=== PATIENT | female | born 1980 | race Caucasian/White ===

== ENCOUNTER 2021-04-23 14:09 | Emergency (ER) | payer OTHER ==
[~2021-04-23] VITALS: Ht 160 cm; Wt 72.6 kg
[2021-04-23 14:25] VITALS: BP 138/90
--- NOTE | 2021-04-23 14:25 | NUR ---
LOWER BACK PAIN SINCE YESTERDAY. TAKING MOTRIN/NAPROSYN W/ NO RELIEF. PLACED PATIENT COMFORTABLY IN BED. PATIENT AOX4. LMP 04/15/21 VITALS CHECKED
[2021-04-23] MEDS ORDERED: HYDROCODONE/APAP 5/325MG TABLET PO ONE (15:00)
[2021-04-23] MEDS ORDERED: METHOCARBAMOL (500MG) 500 MG TABLET PO ONE (15:00)
[2021-04-23] MEDS ORDERED: KETOROLAC TROMETHAMINE INJ 30 MG/ML VIAL IM ONE (15:00)
--- NOTE | 2021-04-23 15:31 | NUR ---
URINE SPECIMEN SENT TO LAB.
[2021-04-23] MEDS ORDERED: KETOROLAC TROMETHAMINE INJ 30 MG/ML VIAL ONE (15:34)
[2021-04-23] MEDS ORDERED: HYDROCODONE/APAP 5/325MG TABLET ONE (15:35)
[2021-04-23] MEDS ORDERED: METHOCARBAMOL (500MG) 500 MG TABLET ONE (15:36)
[2021-04-23] MEDS ORDERED: IBUP-1957 PO (16:13)
[2021-04-23] MEDS ORDERED: METH-647 PO (16:13)
[2021-04-23] MEDS ORDERED: HYDR-3972 PO (16:13)
--- NOTE | 2021-04-23 16:23 | NUR ---
Patient discharged to home in stable condition. Written and verbal after care instructions given. Patient verbalizes understanding of instruction.
== END 2021-04-23 16:28 | disposition home or self-care (01) ==
LOC: ER 14:27
DX: M54.50 Low back pain, unspecified (principal); M54.16 Radiculopathy, lumbar region; I10 Essential (primary) hypertension; E11.9 Type 2 diabetes mellitus without complications
CPT/HCPCS: 72131; 96372; 99284; J1885